=== PATIENT | male | born 2000 | race Caucasian/White ===

== ENCOUNTER 2019-05-20 08:48 | Emergency (ER) | payer OTHER ==
[~2019-05-20] VITALS: Ht 177.8 cm; Wt 65.3 kg
[2019-05-20 08:54] VITALS: Ht 177.8 cm; Wt 65.3 kg
[2019-05-20 10:03] VITALS: BP 121/78
== END 2019-05-20 10:03 | disposition home or self-care (01) ==
LOC: ED 08:48
DX: S01.81XA Laceration without foreign body of other part of head, initial encounter (principal); W10.9XXA Fall (on) (from) unspecified stairs and steps, initial encounter; Y93.89 Activity, other specified; Y92.89 Other specified places as the place of occurrence of the external cause; Y99.8 Other external cause status
CPT/HCPCS: J2001

== ENCOUNTER 2019-05-28 08:19 | Emergency (ER) | payer OTHER ==
[~2019-05-28] VITALS: Ht 188 cm; Wt 65.3 kg
[2019-05-28 08:31] VITALS: Ht 188 cm; Wt 65.3 kg
[2019-05-28 09:40] VITALS: BP 120/65
== END 2019-05-28 09:40 | disposition home or self-care (01) ==
LOC: ED 08:19
DX: S01.111D Laceration without foreign body of right eyelid and periocular area, subsequent encounter (principal); X58.XXXD Exposure to other specified factors, subsequent encounter

== ENCOUNTER 2020-12-22 12:52 | Emergency (ER) | payer OTHER, BC ==
[~2020-12-22] VITALS: Ht 190.5 cm; Wt 71.7 kg
[2020-12-22 13:05] VITALS: Ht 190.5 cm; Wt 71.7 kg
[2020-12-22 14:39] VITALS: BP 160/96
== END 2020-12-22 14:39 | disposition home or self-care (01) ==
LOC: ED 12:52
DX: S33.5XXA Sprain of ligaments of lumbar spine, initial encounter (principal); S13.9XXA Sprain of joints and ligaments of unspecified parts of neck, initial encounter; V49.9XXA Car occupant (driver) (passenger) injured in unspecified traffic accident, initial encounter; Y93.I9 Activity, other involving external motion; Y92.413 State road as the place of occurrence of the external cause; Y99.8 Other external cause status
CPT/HCPCS: J1885